=== PATIENT | female | born 1965 | race Caucasian/White ===

== ENCOUNTER 2020-01-21 11:30 | Emergency (ER) | payer MEDICAID, SELFPAY ==
[2020-01-21 11:30] VITALS: BP 156/98; PULSE 89; RESP 16; TEMP 36.8; O2SAT 96; BMI 19.0
--- NOTE | 2020-01-21 11:51 | HMH.EDGENADL ---
ED Disposition Clinical Impression: Right otitis media with spontaneous rupture of eardrum Disposition: Home, Self-Care Condition on Discharge: Good Instructions: DI for Tympanic Membrane Perforation-Adult, DI for Middle Ear Infection-Adult Additional Instructions: Zithromax as prescribed. Keep ear dry, do not get liquid in your ear, put cotton ball in your ear when you shower. Tyler as needed for pain. Follow-up with Dr. Elizabeth in his office, call for appointment. Additional instructions for CONTROLLED SUBSTANCES: You have been prescribed a medication that is a controlled substance. Controlled substances include pain medications known as opiates and sedative nerve medications known as benzodiazepines. Tramadol, fioricet, and gabapentin are also controlled substances. Some common opiates include: Codeine (such as Tylenol #3) Hydrocodone (Vicodin, Lortab, Lorcet, Tyler) Oxycodone (Percocet, Percodan, Oxycodone, Oxy IR) Some common benzodiazepines include: Diazepam (Valium) Lorazepam (Ativan) Alprazolam (Xanax) Clonazepam (Klonopin) Oxazepam (Serax) All of these controlled substances are highly addictive and frequently abused. Misuse can and frequently does lead to addiction as well as overdose and . Medication should be stored in a locked cabinet or other secure storage unit. Do not store the medication in a motor vehicle. Short term supplies, 3 days or less, are prescribed because of the highly addictive nature of the medication. Any of the controlled substance medication NOT taken should be disposed of properly and NOT SAVED. The recommended method of disposing of unused medications is: Place the medicines in a sealable plastic bag. If the medicine is a solid, crush it or add water to dissolve it. Add something undesirable (cat litter, coffee grounds, etc.) Dispose of sealed bag in household trash Do not flush or pour unused medicines down a sink or drain. Controlled substances should not be shared, given away or sold. Because of the addictive nature and frequent abuse, these medications are sometimes stolen. These medications should be kept in a safe place where they cannot be stolen. Do not keep them in your car or purse. Lost or stolen prescriptions for controlled substances WILL NOT BE REFILLED in this emergency department, regardless of whether a police report was filed. Prescriptions: Hydrocod/Acet 5/325 mg [Tyler 5/325mg tablet] 1 tab PO Q6HP PRN #10 tab PRN Reason: Pain Transmission Status: Received by [id number] Azithromycin [Zithromax 250mg tab] 250 mg PO DIRECTED #6 tab Referrals: Sujata Vasquez [Primary Care Provider] - Darien Elizabeth MD [Staff Physician] - - Critical Care Critical Care Time: No Attestation: On , the high probability of a clinically significant, sudden or life threatening deterioration of the following system(s) required my full and direct attention, intervention and personal management. The time I documented below is in addition to time spent performing reported procedures but includes the following listed in this critical care notation. Medical Decision Making - Gael Inquiry Pt receiving controlled substance: Yes Gael was queried for this patient: Yes Reference #:: [id number] Risks and benefits of using a controlled substance: were discussed with pt by me Comment: 1 rx 12 norco 09/29/19 Vital Signs: 01/21/20 11:30 Temperature 98.3 F Temperature Source Oral Pulse Rate [Left Radial] 89 Respiratory Rate 16 Blood Pressure [Right Arm] 156/98 H Blood Pressure Mean [Right Arm] 117 Blood Pressure Source [Right Arm] Automatic Cuff Blood Pressure Position [Right Arm] Sitting 02 Sat by Pulse Oximetry 96 Oxygen Delivery Method Room Air General Adult HPI - General Chief complaint: Ear Stated complaint: ear pain Time Seen by Provider: 01/21/20 11:51 Mode of Arrival: Ambulatory Limitations: No Limitations Description
[2020-01-21 12:22] VITALS: BP 138/74; PULSE 78; RESP 18; TEMP 36.6; O2SAT 98
== END 2020-01-21 12:23 | disposition home or self-care (01) ==
LOC: ER 12:09
PROVIDERS: Emergency Provider Emergency Medicine; PCP Family Medicine
DX: H66.91 Otitis media, unspecified, right ear (principal); H72.91 Unspecified perforation of tympanic membrane, right ear; F17.210 Nicotine dependence, cigarettes, uncomplicated
CPT/HCPCS: 99282

== ENCOUNTER 2021-07-04 13:05 | Observation (INO) | payer MEDICAID, SELFPAY ==
[2021-07-04] VITALS (14 sets, daily range): BP systolic 98–177; BP diastolic 61–94; PULSE 60–86; RESP 16–19; TEMP 36.5–37; O2SAT 94–97; BMI 24.2; BMI 19.4
--- NOTE | 2021-07-04 13:09 | CT_ITS ---
FINAL REPORT CLINICAL HISTORY: STROKE weakness FINDINGS: Axial images of the head were obtained without contrast. Coronal reformatted images were also obtained.This study was performed with techniques to keep radiation doses as low as reasonably achievable (ALARA). Individualized dose reduction techniques using automated exposure control or adjustment of mA and/or kV according to the patient's size were employed. There is no evidence of intracranial hemorrhage or mass. The ventricular size is within normal limits. There is no evidence of shift of the midline structures. No abnormal extra axial fluid collection is identified. No skull abnormality is seen on the bone window images. IMPRESSION: No acute intracranial abnormality. Reviewed, Interpreted and Dictated by Anderson Mary III, MD Transcribed by Devang Thompson Authenticated by Anderson Mary III, MD on 07/04/2021 01:32:21 PM [facility]
--- NOTE | 2021-07-04 13:15 | ECG_ITS ---
APPROVED REPORT Exam: Resting ECG HR:92 bpm ECG Measurements Heart Rate 92 AXES ME 145 P 85 QRSd 82 QRS 78 QT 396 T 61 QTc 446 Conclusion SINUS RHYTHM POSSIBLE LEFT ATRIAL ENLARGEMENT [-0.1mV P-WAVE IN V1/V2] POSSIBLE RIGHT VENTRICULAR CONDUCTION DELAY [RSR (QR) IN V1/V2] MODERATE ST DEPRESSION [0.05+ mV ST DEPRESSION] ABNORMAL ECG UNCONFIRMED REPORT Electronically signed by : Nilesh Will MD 07/04/2021 21:22:55
--- NOTE | 2021-07-04 13:27 | HMH.EDGENADL ---
ED Disposition Clinical Impression: Weakness, Vertigo Disposition: Admitted as Observation Condition on Discharge: Fair Referrals: Sujata Vasquez [Primary Care Provider] - - Critical Care Critical Care Time: No Attestation: On 07/04/21, the high probability of a clinically significant, sudden or life threatening deterioration of the following system(s) required my full and direct attention, intervention and personal management. The time I documented below is in addition to time spent performing reported procedures but includes the following listed in this critical care notation. Medical Decision Making - Gael Inquiry Pt receiving controlled substance: No Vital Signs: 07/04/21 13:06 07/04/21 13:30 07/04/21 14:00 Temperature 97.7 F Temperature Source Oral Pulse Rate 80 74 Pulse Rate [Left Radial] 84 Respiratory Rate 18 16 16 Blood Pressure 137/74 148/84 H Blood Pressure [Right Arm] 133/81 Blood Pressure Mean 96 101 Blood Pressure Mean [Right Arm] 98 Blood Pressure Source [Right Arm] Automatic Cuff Blood Pressure Position [Right Arm] Sitting 02 Sat by Pulse Oximetry 97 94 L 97 Oxygen Delivery Method Room Air 07/04/21 14:31 07/04/21 15:00 07/04/21 15:30 Temperature Temperature Source Pulse Rate 76 86 65 Pulse Rate [Left Radial] Respiratory Rate 18 17 16 Blood Pressure 169/86 H 177/94 H 161/91 H Blood Pressure [Right Arm] Blood Pressure Mean 107 115 114 Blood Pressure Mean [Right Arm] Blood Pressure Source [Right Arm] Blood Pressure Position [Right Arm] 02 Sat by Pulse Oximetry 97 96 96 Oxygen Delivery Method 07/04/21 16:00 Temperature Temperature Source Pulse Rate 68 Pulse Rate [Left Radial] Respiratory Rate 16 Blood Pressure 159/76 H Blood Pressure [Right Arm] Blood Pressure Mean 103 Blood Pressure Mean [Right Arm] Blood Pressure Source [Right Arm] Blood Pressure Position [Right Arm] 02 Sat by Pulse Oximetry 95 Oxygen Delivery Method - Lab Data Lab Results 07/04/21 13:00: Salicylates < 1.0 L, Acetaminophen < 10 L 07/04/21 13:00: Plasma/Serum Alcohol < 10 07/04/21 13:10: WBC 10.9 H, RBC 5.01, Hgb 15.6, Hct 47.8 H, MCV 95.4, MCH 31.2, MCHC 32.7, RDW 14.4, Plt Count 338, MPV 9.3, Neut % (Auto) 62.1, Lymph % (Auto) 30.1, [place] % (Auto) 4.8, Eos % (Auto) 1.6, Baso % (Auto) 1.4, Neut # (Auto) 6.7, Lymph # (Auto) 3.3, [place] # (Auto) 0.5, Eos # (Auto) 0.2, Baso # (Auto) 0.2 07/04/21 13:10: Sodium 139, Potassium 3.3 L, Chloride 106, Carbon Dioxide 27, Anion Gap 9.3, BUN 14, Creatinine 0.70, Estimated Creat Clear 98, Estimated GFR 87, Est GFR ( Amer) 105, Glucose 127 H, Calcium 9.3, Total Bilirubin 0.6, AST 43 H, ALT 26, Alkaline Phosphatase 81, Troponin I < 0.01, Total Protein 6.6, Albumin 3.9, Globulin 2.7, Albumin/Globulin Ratio 1.4 07/04/21 13:38: Urine Color Yellow, Urine Appearance Clear, Urine pH 6.5, Ur Specific [place] 1.010, Urine Protein Negative, Urine Glucose (UA) Negative, Urine Ketones Negative, Urine Blood 2+, Urine Nitrate Negative, Urine Bilirubin Negative, Urine Urobilinogen 0.2, Ur Leukocyte Esterase Negative, Urine RBC 10-20, Urine WBC None, Ur Squamous Epith Cells 3-5, Urine Bacteria Trace 07/04/21 14:38: Lactate 1.1 07/04/21 15:14: Urine Opiates Screen Negative, Urine Methadone Screen Negative, Ur Barbituates Screen Negative, Ur Phencyclidine Scrn Negative, Ur Amphetamines Screen Negative, U Benzodiazepines Scrn Negative, Urine Cocaine Screen Negative, U Marijuana (THC) Screen Positive H 07/04/21 15:45: SARS-CoV-2 (PCR) Not detected, Influenza A Untype (PCR) Not detected, Influenza Type B (PCR) Not detected Result diagrams: 07/04/21 13:10 07/04/21 13:10 Orders (Tests/Meds): ED MEDICATIONS Generic Name Dose Route Start Last Admin Trade Name Freq PRN Reason Stop Dose Admin Sodium Chloride 10 ml 07/04/21 13:37 Sodium Chloride 0.9% 10ml Flush Syringe IV 08/03/21 13:36 NEEDED PRN Maintain IV Site
--- NOTE | 2021-07-04 13:47 | PC.NURSE ---
Pt glucose was 133
[2021-07-04 13:50] LABS: Alanine Aminotransferase 26 U/L (12-78); Albumin Level 3.9 g/dl (3.5-5.0); Albumin/Globulin Ratio 1.4 (1.1-1.8); Alkaline Phosphatase 81 U/L (38-126); Anion Gap 9.3 mEq/L (5-15); Aspartate Amino Transferase 43 U/L (14-36); Bilirubin,Total 0.6 mg/dl (0.2-1.3); Blood Urea Nitrogen 14 mg/dl (7-17); Calcium 9.3 mg/dl (8.4-10.2); Carbon Dioxide 27 mmol/L (22.0-30.0); Chloride 106 mmol/L (98-107); Creatinine Clearance Estimated 98 mL/min (50-200); Estimated Glomerular Filt Rate 87 ml/min (>60); GFR (African American) 105 ML/MIN (>60); Globulin 2.7 g/dL (1.3-3.2); Glucose 127 mg/dl (74-100); Potassium 3.3 mmoL/L (3.5-5.1); Sodium 139 mmol/L (136-145); Total Protein,Serum 6.6 g/dl (6.3-8.2)
[2021-07-04 14:00] LABS: Basophils # 0.2 K/mm3 (0-0.2); Basophils % 1.4 % (0.1-2.0); Eosinophils # 0.2 K/mm3 (0.0-0.4); Eosinophils % 1.6 % (0.1-12.0); Hematocrit 47.8 % (37.0-47.0); Hemoglobin 15.6 g/dL (12.2-16.2); Lymphocytes # 3.3 K/mm3 (0.7-4.5); Lymphocytes % 30.1 % (10-50); Mean Corpuscular HGB Conc 32.7 g/dL (31.8-35.4); Mean Corpuscular Hemoglobin 31.2 pg (27.0-31.2); Mean Corpuscular Volume 95.4 fl (81-99); Mean Platelet Volume 9.3 fl (7.4-10.4); Monocytes # 0.5 K/mm3 (0.1-1.0); Monocytes % 4.8 % (1.7-9.3); Neutrophils # 6.7 K/mm3 (1.8-7.8); Neutrophils % 62.1 % (37.0-80.0); Platelet Count 338 K/mm3 (142-424); Red Blood Count 5.01 M/mm3 (4.20-5.40); Red Cell Distribution Width 14.4 % (11.5-17.5); White Blood Count 10.9 K/mm3 (4.8-10.8)
--- NOTE | 2021-07-04 14:02 | PC.NURSE ---
Attempted to collect urine by in out cath, unable to at the time due to pt bladder being empty
[2021-07-04 14:03] LABS: Troponin I < 0.01 ng/ml (0.00-0.034)
--- NOTE | 2021-07-04 14:19 | XR_ITS ---
FINAL REPORT CLINICAL HISTORY: weakness FINDINGS: SINGLE VIEW CHEST The heart size is normal. The mediastinum is within normal limits. No acute pulmonary abnormality is identified. There is no evidence of pneumothorax. The bony thorax is intact. IMPRESSION: No active disease. Reviewed, Interpreted and Dictated by Anderson Mary III, MD Transcribed by Debra Levin Authenticated by Anderson Mary III, MD on 07/04/2021 03:41:25 PM [facility]
--- NOTE | 2021-07-04 14:27 | CT_ITS ---
FINAL REPORT TECHNIQUE: Thin section axial CT with IV contrast supplemented with multiplanar reconstruction under CT angiogram protocol. 3-D reconstructions were performed. This study was performed with techniques to keep radiation doses as low as reasonably achievable (ALARA). Individualized dose reduction techniques using automated exposure control or adjustment of mA and/or kV according to the patient''s size were employed. CLINICAL HISTORY: slurred speech, vertigo FINDINGS: The distal vertebral, basilar and distal internal carotid arteries have an unremarkable appearance. No aneurysm is seen. Major intracranial vessels are patent without significant stenosis. IMPRESSION: No aneurysm or significant stenosis. Reviewed, Interpreted and Dictated by Anderson Mary III, MD Transcribed by Devang Thompson Authenticated by Anderson Mary III, MD on 07/04/2021 03:57:08 PM [facility]
--- NOTE | 2021-07-04 14:27 | CT_ITS ---
FINAL REPORT TECHNIQUE: Thin section axial CT with IV contrast supplemented with multiplanar reconstruction under CT angiogram protocol. This study was performed with techniques to keep radiation doses as low as reasonably achievable (ALARA). Individualized dose reduction techniques using automated exposure control or adjustment of mA and/or kV according to the patient''s size were employed. NASCET criteria was utilized during interpretation. CLINICAL HISTORY: slurred speech, vertigo FINDINGS: Aortic arch: Arch shows no significant narrowing. Great vessel origins are widely patent. Right carotid: No significant stenosis is seen of the cervical common or internal carotid artery. Left carotid: No significant stenosis is seen of the cervical common or internal carotid artery. Vertebral: Left vertebral artery is dominant. No significant stenosis is present. IMPRESSION: No significant stenosis. Reviewed, Interpreted and Dictated by Anderson Mary III, MD Transcribed by Devang Thompson Authenticated by Anderson Mary III, MD on 07/04/2021 03:57:07 PM [facility]
--- NOTE | 2021-07-04 14:30 | PC.NURSE ---
notified rad of new CT orders on pt, spoke with misha
[2021-07-04 14:36] LABS: Acetaminophen < 10 ug/ml (10-30); Ethyl Alcohol < 10 mg/dl (0-10); Salicylate < 1.0 mg/dL (2.0-20.0)
[2021-07-04 15:01] LABS: Lactic Acid 1.1 mmol/L (0.7-2.1)
[2021-07-04 15:23] LABS: Microscopic, Urine URINE MICROSCOPIC (MICROSCOPIC)
[2021-07-04 15:26] LABS: Appearance,Urine CLEAR (Clear); Bilirubin,Urine Negative (Negative); Blood, Urine 2+ (Negative); Color,Urine YELLOW (Yellow); Glucose,Urine (UA) Negative (Negative); Ketones,Urine Negative (Negative); Leukocyte Esterase,Urine Negative (Negative); Nitrate,Urine Negative (Negative); PH,Urine 6.5 (5.0-8.5); Protein,Urine Negative (Negative); Urobilinogen,Urine 0.2 EU/dl (0.2)
[2021-07-04 15:40] LABS: Barbiturates Screen,Urine Negative ng/ml (<200); Benzodiazepines Screen,Urine Negative ng/ml (<200)
[2021-07-04 15:41] LABS: Amphetamine/Metha Screen,Urine Negative ng/ml (<1000); Methadone Screen,Urine Negative ng/ml (<300)
[2021-07-04 15:42] LABS: Cannabinoid Screen,Urine Positive ng/ml (<50)
[2021-07-04 15:43] LABS: Cocaine Screen,Urine Negative ng/ml (<300); Opiate Screen,Urine Negative ng/ml (<300)
[2021-07-04 15:44] LABS: Phencyclidine Screen,Urine Negative ng/ml (<25)
[2021-07-04 15:55] LABS: Bacteria,Urine Trace /lpf
[2021-07-04 15:55] LABS: Coronavirus 19, PCR Not Detected (NotDetected); Influenza A, PCR Not Detected (NotDetected); Influenza B, PCR Not Detected (NotDetected)
--- NOTE | 2021-07-04 16:22 | PC.NURSE ---
patient used BSC with assistance; no complications. patient hooked back up to monitor and has no other needs at this time
--- NOTE | 2021-07-04 16:25 | PC.NURSE ---
patient given ice water; rachel'waldemar by
--- NOTE | 2021-07-04 16:45 | PC.NURSE ---
TREMAINE HERNANDEZ speaking with Dr. Flores who is ammunition and explosives handler for service pts.
--- NOTE | 2021-07-04 16:54 | PC.NURSE ---
notified cook house supervisor of admission
--- NOTE | 2021-07-04 17:15 | PC.NURSE ---
waiting [employer] retailer sales consultant back from second floor to give report
[2021-07-04 17:20] LABS: Troponin I < 0.01 ng/ml (0.00-0.034)
--- NOTE | 2021-07-04 17:25 | PC.NURSE ---
report called to sara starks on second floor at this time, states she will sent staff down to get pt.
--- NOTE | 2021-07-04 17:45 | PC.NURSE ---
patient arrived to the floor at this time
[2021-07-04 19:57] LABS: Troponin I < 0.01 ng/ml (0.00-0.034)
[2021-07-05] VITALS: PULSE 60
[2021-07-05 03:28] VITALS: BP 111/68; PULSE 62; RESP 18; TEMP 36.4; O2SAT 98
[2021-07-05 04:00] VITALS: PULSE 60
[2021-07-05 05:01] VITALS: BMI 20.2
--- NOTE | 2021-07-05 07:27 | P.CONPHA_ITS ---
[facility] Pharmacy VTE Monitoring - Patient Demographics Admission date: 07/04/21 Report Date: 07/05/21 Time: 07:27 Allergies/Adverse Reactions: Patient Allergies Penicillins Allergy (Intermediate, Verified 01/21/20 12:06) Rash Height: 1.7 m Weight: 58.542 kg Patient Problems: Current Active Problems Weakness (Acute) Vertigo (Acute) - VTE Risk Labs: VTE Related Lab Results Hgb 15.6 g/dL (12.2-16.2) 07/04/21 13:10 Hct 47.8 % (37.0-47.0) H 07/04/21 13:10 Plt Count 338 K/mm3 (142-424) 07/04/21 13:10 BUN 14 mg/dl (7-17) 07/04/21 13:10 Creatinine 0.70 mg/dl (0.52-1.04) 07/04/21 13:10 Estimated Creat Clear 98 mL/min (50-200) 07/04/21 13:10 Clinical Trial Participant: No - Prophylaxis VTE Prophylaxis Ordered?: Yes Types of VTE Prophylaxis: TEDS Knee High
--- NOTE | 2021-07-05 07:28 | HMH.PHAINT ---
home medication list verified using list from [facility] pharmacy
[2021-07-05 08:00] VITALS: BP 126/78; PULSE 57; RESP 20; TEMP 36.6; O2SAT 94
--- NOTE | 2021-07-05 09:55 | HMH.HPDC ---
General - General Admission date:: 07/04/21 Discharge date: 07/05/21 *Admission Date: 07/04/21 *Chief complaint: Altered mental status *History of present illness: 55-year-old female patient presented to the [facility] emergency department via EMS after unable to get out of car. Patient's friend reports she followed patient up to [employer] to drop off a car and on the way back, friend noticed patient was looking pale and reported she felt sick. Patient vomited shortly thereafter a small amount and friend reports that patient's speech was slurred at that time, friend denied any facial droop and patient was moving all 4 extremities. Friend drove her back home activated EMS, and patient was unable to get out of car. In the emergency room patient was disoriented and had slurred speech, patient denied fever/chills/body ache, nausea/vomiting/diarrhea, chest pain, shortness of air, abdominal pain. Patient reports primary care is Dr. Vasquez in [facility] History I have reviewed the patient's past medical history: Yes *Have you ever received a pneumonia vaccine?: No *Have you received a flu vaccine this season?: No Laterality Cases: Bilateral: Tonsillectomy - *Social History Last grade of school completed: Some college Smoking Status: Current every day smoker # Packs/Day (cigarettes): 1 Alcohol Intake: never Alcohol Intake Frequency:: 0-2 drinks per day Substance Use Type: denies use Last Used Substance: unknown *Occupational Status:: other *Travel in the last 8 weeks: None Family Hx:: Unable to obtain Review of Systems - Review of Systems Review of systems:: pertinent systems reviewed and negative unless documented below - Constitutional Reports headache(s), Reports weakness, Denies body ache(s) - Eyes Denies blurry vision, Denies double vision - ENT Reports dizziness, Reports headache(s) - *Cardiovascular Denies chest pain, Denies excessive sweating - *Respiratory Denies chest congestion, Denies cough - *Gastrointestinal Denies abdominal pain, Denies change in bowel habits - *Musculoskeletal Reports muscle weakness, Denies joint pain, Denies body aches - Integumentary/Breasts Denies change in skin color, Denies itching - *Neurologic Reports abnormal speech, Reports headache(s), Reports weakness, Denies localized weakness, Denies numbness - Psychiatric Denies anxiety, Denies panic attacks - Endocrine Reports cold intolerance, Denies increased hunger - Hematologic/Lymphatic Denies easy bleeding, Denies enlarged lymph nodes - Allergic/Immunologic Denies GI upset with certain foods, Denies throat swelling Exam Vital signs and Labs for Last 24 Hours: Temp Pulse Resp BP Pulse Ox 97.9 F 57 L 20 126/78 94 L 07/05/21 08:00 07/05/21 08:00 07/05/21 08:00 07/05/21 08:00 07/05/21 08:00 Laboratory Results - last 24 hr 07/04/21 13:00: Salicylates < 1.0 L, Acetaminophen < 10 L 07/04/21 13:00: Plasma/Serum Alcohol < 10 07/04/21 13:10: WBC 10.9 H, RBC 5.01, Hgb 15.6, Hct 47.8 H, MCV 95.4, MCH 31.2, MCHC 32.7, RDW 14.4, Plt Count 338, MPV 9.3, Neut % (Auto) 62.1, Lymph % (Auto) 30.1, [place] % (Auto) 4.8, Eos % (Auto) 1.6, Baso % (Auto) 1.4, Neut # (Auto) 6.7, Lymph # (Auto) 3.3, [place] # (Auto) 0.5, Eos # (Auto) 0.2, Baso # (Auto) 0.2 07/04/21 13:10: Sodium 139, Potassium 3.3 L, Chloride 106, Carbon Dioxide 27, Anion Gap 9.3, BUN 14, Creatinine 0.70, Estimated Creat Clear 98, Estimated GFR 87, Est GFR ( Amer) 105, Glucose 127 H, Calcium 9.3, Total Bilirubin 0.6, AST 43 H, ALT 26, Alkaline Phosphatase 81, Troponin I < 0.01, Total Protein 6.6, Albumin 3.9, Globulin 2.7, Albumin/Globulin Ratio 1.4 07/04/21 13:38: Urine Color Yellow, Urine Appearance Clear, Urine pH 6.5, Ur Specific [place] 1.010, Urine Protein Negative, Urine Glucose (UA) Negative, Urine Ketones Negative, Urine Blood 2+, Urine Nitrate Negative, Urine Bilirubin Negative, Urine Urobilinogen 0.2, Ur Leukocyte Est
--- NOTE | 2021-07-06 13:58 | CARE MANAGER ---
Contacted patient related to discharge from hospital. She states she is feeling well and denies any problems. She hasn't had any additional episodes similar to the other day. She states she missed her appointment today with the neurologist but rescheduled it for Saturday.
== END 2021-07-05 12:40 | disposition home or self-care (01) ==
LOC: ER 16:07 → 2ND 17:19
PROVIDERS: Admitting Provider Emergency Medicine; Emergency Provider Emergency Medicine; PCP Family Medicine; Visit Provider Emergency Medicine
DX: R55 Syncope and collapse (principal); Z20.822 Contact with and (suspected) exposure to COVID-19; F17.210 Nicotine dependence, cigarettes, uncomplicated; G45.8 Other transient cerebral ischemic attacks and related syndromes; Z79.899 Other long term (current) drug therapy
CPT/HCPCS: 36415; 70450; 70496; 70498; 71045; 80053; 80305; 80329; 81001; 83605; 84484; 85025; 87040; 93005; 96375; 99285; C9803; G0378; J2405; Q9967; U0003; U0005